=== PATIENT | male | born 1945 | race Caucasian/White ===

== ENCOUNTER 2016-04-17 12:24 | Outpatient (CLI) | payer OTHER | END 2016-04-17 12:25 | LOC: CARD 12:24 | PROVIDERS: ATTEND Internal Medicine Cardiovascular Disease | DX: I25.10 Atherosclerotic heart disease of native coronary artery without angina pectoris (principal) | CPT/HCPCS: G0463 ==

== ENCOUNTER 2017-04-23 13:49 | Outpatient (CLI) | payer OTHER | END 2017-04-23 13:50 | LOC: CARD 13:49 | PROVIDERS: ATTEND Internal Medicine Cardiovascular Disease | DX: I25.10 Atherosclerotic heart disease of native coronary artery without angina pectoris (principal); E11.9 Type 2 diabetes mellitus without complications; E78.5 Hyperlipidemia, unspecified; I10 Essential (primary) hypertension | CPT/HCPCS: 99213 ==